=== PATIENT | female | born 1990 | race American Indian/Alaskan Native ===

== ENCOUNTER 2016-09-13 23:30 | Emergency (ER) | payer BC, OTHER ==
[2016-09-14] MEDS ORDERED: TYLENOL PO ONE (00:52)
[2016-09-14 01:52] LABS: Basophils % (Auto) 0.5 % (0.0-1.8); Eosinophils % (Auto) 0.5 % (0.0-4.3); Hematocrit 40.1 % (30.3-42.9); Hemoglobin 12.8 gm/dl (10.1-14.3); Mean Corpuscular HGB Conc 32 % (30-34); Mean Corpuscular Hemoglobin 26 pg (28-32); Mean Corpuscular Volume 83 fl (79-97); Platelet Count 180 K/mm3 (140-440); Red Blood Count 4.85 M/mm3 (3.65-5.03); Red Cell Distribution Width 14.9 % (13.2-15.2); White Blood Count 4.9 K/mm3 (4.5-11.0)
[2016-09-14 02:12] LABS: Anion Gap 17 mmol/L; BUN/Creatinine Ratio 12.85; Blood Urea Nitrogen 9 mg/dL (7-17); Calcium 8.9 mg/dL (8.4-10.2); Carbon Dioxide 27 mmol/L (22-30); Chloride 98.7 mmol/L (98-107); Glucose 98 mg/dL (65-100); Potassium 3.9 mmol/L (3.6-5.0); Sodium 139 mmol/L (137-145)
[2016-09-14] MEDS ORDERED: MAGNESIUM SULFATE ONE (05:06)
[2016-09-14] MEDS ORDERED: MOTRIN PO ONE (06:37)
[2016-09-14 07:45] VITALS: BP 104/63
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
--- NOTE | 2016-09-14 08:52 | XRay Report ---
AP CHEST : 09/13/16 23:30:00 CLINICAL: Chest pain. COMPARISON:None FINDINGS: Normal heart and pulmonary vessels. The lungs are normally expanded and clear. The bones and soft tissues are unremarkable. IMPRESSION: Normal chest.
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
--- NOTE | 2016-09-14 09:57 | XRay Report ---
MANDIBLE RADIOGRAPH/PANOREX: INDICATION: Pain, swelling. COMPARISON: None similar. FINDINGS: Panorex demonstrates grossly intact mandibular contours and teeth. Few radiopaque dental fillings. Approximately 1.3 cm presumed nasal piercing wire-like density on the left. Please correlate. CONCLUSION: No definite acute mandibular fracture noted, as described. Please correlate. Thank you for the opportunity to participate in this patient's care.
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
[2016-09-14] MEDS ORDERED: TRIPLE ANTIBIOTIC TP ONE ×2 (10:49→11:15)
[2016-09-14] MEDS ORDERED: NACL 0.9% 500 ML IR ONE (10:50)
[2016-09-14] MEDS ORDERED: NACL 0.9% IR ONE (11:15)
== END 2016-09-14 11:18 | disposition home or self-care (01) ==
LOC: ED 23:30
DX: S13.8XXA Sprain of joints and ligaments of other parts of neck, initial encounter (principal); S43.491A Other sprain of right shoulder joint, initial encounter; S60.412A Abrasion of right middle finger, initial encounter; S60.511A Abrasion of right hand, initial encounter; F12.10 Cannabis abuse, uncomplicated; M79.1 Myalgia; V49.9XXA Car occupant (driver) (passenger) injured in unspecified traffic accident, initial encounter; Y93.89 Activity, other specified; Y92.89 Other specified places as the place of occurrence of the external cause; Y99.8 Other external cause status
CPT/HCPCS: 36415; 70355; 70450; 71010; 72125; 80048; 84703; 85025; 93005; 93010; A6250; J3475